=== PATIENT | male | born 1980 | race Caucasian/White ===

== ENCOUNTER 2017-04-16 14:24 | Emergency (ER) | payer OTHER ==
[~2017-04-16] VITALS: Ht 185.4 cm; Wt 107.0 kg
[~2017-04-16 14:24] MED LIST: ADDERALL20 MG PO; ALBUTEROL SULF8.5 GM IH; AMBIEN10 MG PO; CEPHALEXIN500 M2 PO; CLONAZEPAM0.5 MG PO; DEBROX15 ML BOTH EARS; DEPAKOTE ER (E500 M1 PO; DEPAKOTE ER500 MG PO; DEPAKOTE500 MG; DEPAKOTE500 MG PO; DOXYCYCLINE HY100 M1 PO; ERYTHROMYCIN O3.5 GM RIGHT EYE; FLEXERIL5 MG PO; FLOVENT 11120 INHALA IH; GEODON20 MG PO; IBUPROFEN800 MG PO; KLONOPIN0.5 M1 PO; LEVAQUIN500 MG PO; LEVOTHYROXINE100 MCG PO; LEVOTHYROXINE25 MCG PO; LICE TREATMENT118 ML TP; LIDODERM 5% P1 PATCH TD; LISINOPRIL10 MG PO; LISINOPRIL20 MG PO; MEDROL DOSEPAK4 MG PO; MOTRIN800 MG PO; NAPROXEN500 M2 PO; PERCOCET 5/31 TABLET PO; PERCOCET 7.51 TABLET PO; PREDNISONE20 MG PO; PROAIR HFA8.5 GM IH; RISPERDAL1 MG; RISPERDAL1 MG PO; RISPERIDONE1 MG PO; RITALIN20 MG PO; ROBITUSSIN AC,T10 ML PO; SERTRALINE HCL100 MG PO; SERTRALINE HCL50 MG PO; STRATTERA40 MG; STRATTERA40 MG PO; SYNTHROID100 MCG PO; SYNTHROID50 MCG; TESSALON PERLE100 MG PO; TRILEPTAL150 MG PO; TRILEPTAL300 MG PO; TYLENOL REGULA325 MG PO; VENTOLIN HFA18 GM IH; VIBRAMYCIN100 MG PO; VOLTAREN75 MG PO; ZIPRASIDONE HCL20 MG PO; ZITHROMAX Z-PA250 MG PO; ZITHROMAX250 MG PO; ZOLOFT100 M1 PO; ZOLOFT100 MG PO
[2017-04-16 15:53] LABS: HEMATOCRIT 45.3 % (38.0-50.0); MCH 29.5 PG (29.0-34.0); MCHC 34.4 G/DL (30.0-36.0); MCV 85.8 FL (86-99); MEAN PLAT.VOLUME 9.6 uM^3 (9.0-12.4); PLATELET COUNT 156 K/uL (156-360); RBC DIS.WIDTH-CV 12.8 % (11.8-14.6); RBC DIS.WIDTH-SD 39.5 % (39-53); RED BLOOD COUNT 5.28 M/uL (4.00-5.50); WHITE BLOOD COUNT 6.6 K/uL (4.1-10.2)
[2017-04-16 16:02] LABS: CHLORIDE 106 mEq/L (99-109); POTASSIUM 4.3 mEq/L (3.7-5.4); SODIUM 139 mEq/L (136-147)
[2017-04-16 16:04] LABS: GLUCOSE 86 mg/dL (70-99)
[2017-04-16 16:05] LABS: ANION GAP 7 MEQ/L (2-14)
[2017-04-16 16:06] LABS: TOTAL BILIRUBIN 0.5 mg/dL (0.0-1.0)
[2017-04-16 16:08] LABS: ALKALINE PHOSPHATASE 56 IU/L (3-129); GFR ESTIMATE (CALCULATED) > 59 mL/min/
[2017-04-16 16:09] LABS: UREA NITROGEN (BUN) 19 mg/dL (9-23)
[2017-04-16 16:11] LABS: LIPASE 24 U/L (1.0-51.0)
[2017-04-16] MEDS ORDERED: OMEPRAZOLE40 M1 PO (17:08)
[2017-04-16] MEDS ORDERED: TOBREX3.5 GM BOTH EYES (17:08)
[2017-04-16 17:30] VITALS: BP 146/88
== END 2017-04-16 17:31 | disposition home or self-care (01) ==
LOC: EME 14:24
PROVIDERS: Physician Assistant
DX: H10.9 Unspecified conjunctivitis (principal); R10.13 Epigastric pain; F17.200 Nicotine dependence, unspecified, uncomplicated; Z88.0 Allergy status to penicillin; Z88.8 Allergy status to other drugs, medicaments and biological substances
CPT/HCPCS: 74022; 80053; 83690; 85027; 99281; 99284

== ENCOUNTER 2017-07-07 04:27 | Emergency (ER) | payer OTHER ==
[~2017-07-07] VITALS: Ht 188 cm; Wt 118.4 kg
[~2017-07-07 04:27] MED LIST changes: +OMEPRAZOLE40 M1 PO; +TOBREX3.5 GM BOTH EYES
[2017-07-07 05:31] LABS: D-DIMER ELISA < 150.00 ng/mLDDU (<230)
[2017-07-07 05:32] LABS: ALBUMIN 4.2 g/dL (3.2-4.8); CHLORIDE 106 mEq/L (99-109); SODIUM 138 mEq/L (136-147)
[2017-07-07 05:34] LABS: GLUCOSE 118 mg/dL (70-99); TOTAL PROTEIN 6.9 g/dL (6.4-8.3)
[2017-07-07 05:36] LABS: TOTAL BILIRUBIN 0.5 mg/dL (0.0-1.0)
[2017-07-07 05:38] LABS: ALKALINE PHOSPHATASE 71 IU/L (3-129); CREATININE 0.8 mg/dL (0.6-1.3); GFR ESTIMATE (CALCULATED) > 59 mL/min/ (58.99-99999)
[2017-07-07 05:39] LABS: UREA NITROGEN (BUN) 15 mg/dL (9-23)
[2017-07-07 05:40] LABS: AST (GOT) 25 IU/L (2-34)
[2017-07-07 05:41] LABS: ALT (GPT) 31 IU/L (3-49); LIPASE 50 U/L (1.0-51.0)
[2017-07-07 05:43] LABS: HEMATOCRIT 41.5 % (38.0-50.0); HEMOGLOBIN 14.7 G/DL (12.5-16.6); MCH 30.4 PG (29.0-34.0); MCHC 35.4 G/DL (30.0-36.0); MCV 85.7 FL (86-99); PLATELET COUNT 198 K/uL (156-360); RBC DIS.WIDTH-CV 12.6 % (11.8-14.6); RBC DIS.WIDTH-SD 38.5 % (39-53); RED BLOOD COUNT 4.84 M/uL (4.00-5.50); WHITE BLOOD COUNT 8.1 K/uL (4.1-10.2)
[2017-07-07] MEDS ORDERED: ZITHROMAX Z-PA250 MG PO (05:57)
[2017-07-07] MEDS ORDERED: HYCODAN SYRUP480 ML PO (05:57)
[2017-07-07 06:18] VITALS: BP 132/98
== END 2017-07-07 06:23 | disposition home or self-care (01) ==
LOC: EME 04:27
PROVIDERS: Emergency Medicine
DX: J20.9 Acute bronchitis, unspecified (principal); K29.00 Acute gastritis without bleeding; K29.50 Unspecified chronic gastritis without bleeding; K76.0 Fatty (change of) liver, not elsewhere classified; R16.0 Hepatomegaly, not elsewhere classified; F90.9 Attention-deficit hyperactivity disorder, unspecified type; F43.10 Post-traumatic stress disorder, unspecified; F32.9 Major depressive disorder, single episode, unspecified; F17.200 Nicotine dependence, unspecified, uncomplicated; Z79.891 Long term (current) use of opiate analgesic; Z88.6 Allergy status to analgesic agent; Z88.2 Allergy status to sulfonamides; Z88.0 Allergy status to penicillin
CPT/HCPCS: 71046; 76705; 80053; 83690; 85027; 85379; 87502; 94640; 99281; 99284

== ENCOUNTER 2017-07-27 17:43 | Emergency (ER) | payer OTHER ==
[~2017-07-27] VITALS: Ht 188 cm; Wt 118.5 kg
[~2017-07-27 17:43] MED LIST changes: +HYCODAN SYRUP480 ML PO
[2017-07-27 18:54] LABS: HEMATOCRIT 44.7 % (38.0-50.0); HEMOGLOBIN 15.7 G/DL (12.5-16.6); MCH 29.7 PG (29.0-34.0); MCHC 35.1 G/DL (30.0-36.0); MCV 84.5 FL (86-99); PLATELET COUNT 199 K/uL (156-360); RBC DIS.WIDTH-CV 12.4 % (11.8-14.6); RBC DIS.WIDTH-SD 38.1 % (39-53); RED BLOOD COUNT 5.29 M/uL (4.00-5.50); WHITE BLOOD COUNT 7.8 K/uL (4.1-10.2)
[2017-07-27 19:13] LABS: ALBUMIN 4.2 G/DL (3.2-4.8); CHLORIDE 108 MEQ/L (99-109); POTASSIUM 3.8 MEQ/L (3.7-5.4); SODIUM 140 MEQ/L (136-147); TOTAL BILIRUBIN 0.3 MG/DL (0.0-1.0)
[2017-07-27 19:18] LABS: ALKALINE PHOSPHATASE 60 IU/L (3-129); ALT (GPT) 20 IU/L (3-49); AST (GOT) 20 IU/L (2-34); CREATININE 0.8 MG/DL (0.6-1.3); GFR ESTIMATE (CALCULATED) > 59 mL/min/ (58.99-99999); GLUCOSE 107 mg/dL (70-99); TOTAL PROTEIN 6.9 G/DL (6.4-8.3); UREA NITROGEN (BUN) 16 mg/dL (9-23)
[2017-07-27 20:40] LABS: APPEARANCE CLEAR ((CLEAR)); BILIRUBIN NEGATIVE; BLOOD NEGATIVE; COLOR YELLOW ((YELLOW)); GLUCOSE (STRIP) NEGATIVE; KETONES NEGATIVE; LEUKOCYTES SMALL; NITRITE NEGATIVE; PROTEIN (STRIP) NEGATIVE; SPECIFIC GRAVITY 1.021 (1.000-1.030); UROBILINOGEN 0.2 MG/DL (0.2-1.0)
[2017-07-27 21:19] LABS: BACTERIA NONE SEEN /HPF; EPITHELIAL CELLS RARE /HPF; MUCUS TRACE /LPF; RED BLOOD CELLS 0-5 /HPF (0-5); UCUL ADDED? YES
[2017-07-28] MEDS ORDERED: ZOFRAN ODT8 MG PO (02:12)
[2017-07-28] MEDS ORDERED: BENTYL20 MG PO (02:12)
[2017-07-28] MEDS ORDERED: ZANTAC300 MG PO (02:13)
[2017-07-28 02:41] VITALS: BP 133/79
== END 2017-07-28 02:42 | disposition home or self-care (01) ==
LOC: EME 17:43
DX: R10.11 Right upper quadrant pain (principal); R11.2 Nausea with vomiting, unspecified; K76.0 Fatty (change of) liver, not elsewhere classified; F31.9 Bipolar disorder, unspecified; F32.9 Major depressive disorder, single episode, unspecified; F41.9 Anxiety disorder, unspecified; F90.9 Attention-deficit hyperactivity disorder, unspecified type; F17.200 Nicotine dependence, unspecified, uncomplicated; Z90.49 Acquired absence of other specified parts of digestive tract; Z88.2 Allergy status to sulfonamides; Z88.0 Allergy status to penicillin; Z88.6 Allergy status to analgesic agent; Z88.8 Allergy status to other drugs, medicaments and biological substances
CPT/HCPCS: 74176; 76705; 80053; 81003; 85027; 87086; 99281; 99284

== ENCOUNTER → 2017-09-10 | Outpatient (CLI) | payer OTHER ==
[~2017-09-10] MED LIST changes: +BENTYL20 MG PO; +ZANTAC300 MG PO; +ZOFRAN ODT8 MG PO
== END | disposition home or self-care (01) ==
LOC: NUC 09:07
DX: R10.11 Right upper quadrant pain (principal)
CPT/HCPCS: 78227; A9537; J2805

== ENCOUNTER 2017-11-04 19:08 | Inpatient (IN) | payer OTHER ==
[~2017-11-04] VITALS: Ht 188 cm; Wt 117.8 kg
[2017-11-04 21:35] LABS: AMPHETAMINE NEGATIVE (500 ng/mL); BARBITURATES NEGATIVE (200 ng/mL); BENZODIAZEPINES NEGATIVE (150 ng/mL); BUPRENORPHINE NEGATIVE (10 ng/mL); COCAINE NEGATIVE (150 ng/mL); METHADONE NEGATIVE (200 ng/mL); METHAMPHETAMINE NEGATIVE (500 ng/mL); OPIATES (MORPHINE) NEGATIVE (100 ng/mL); OXYCODONE NEGATIVE (100 ng/mL); PHENCYCLIDINE NEGATIVE (25 ng/mL); PROPOXYPHENE NEGATIVE (300 ng/mL); THC CANNABINOIDS NEGATIVE (50 ng/mL); TRICYCLIC ANTIDEPRESSANTS NEGATIVE (300 ng/mL)
[2017-11-04 21:52] LABS: HEMATOCRIT 43.8 % (38.0-50.0); HEMOGLOBIN 15.4 G/DL (12.5-16.6); MCH 29.6 PG (29.0-34.0); MCHC 35.2 G/DL (30.0-36.0); MCV 84.2 FL (86-99); PLATELET COUNT 208 K/uL (156-360); RBC DIS.WIDTH-CV 12.7 % (11.8-14.6); RBC DIS.WIDTH-SD 38.7 % (39-53); WHITE BLOOD COUNT 10.8 K/uL (4.1-10.2)
[2017-11-04 22:14] LABS: CHLORIDE 108 mEq/L (99-109); POTASSIUM 3.8 mEq/L (3.7-5.4); SODIUM 142 mEq/L (136-147)
[2017-11-04 22:16] LABS: GLUCOSE 93 mg/dL (70-99)
[2017-11-04 22:19] LABS: SERUM ETHYL ALCOHOL < 10 mg/dL
[2017-11-04 22:20] LABS: CREATININE 0.8 mg/dL (0.6-1.3); GFR ESTIMATE (CALCULATED) > 59 mL/min/ (58.99-99999)
[2017-11-04 22:22] LABS: UREA NITROGEN (BUN) 15 mg/dL (9-23)
[2017-11-04 22:23] LABS: ACETAMINOPHEN (TYLENOL) < 10 mcg/mL (10-30); SALICYLATE < 5.0 MG/DL (15-30)
[2017-11-05] MEDS ORDERED: AMLOD-VALSA-HC1 EAC1 PO (00:22)
[2017-11-05] MEDS ORDERED: MINIPRESS1 MG PO ×2 (00:25→11:11)
[2017-11-05] MEDS ORDERED: ATARAX,VISTARIL50 MG PO (00:25)
[2017-11-05] MEDS ORDERED: DESYREL100 MG PO (00:25)
[2017-11-05 00:38] VITALS: BP 147/86
[2017-11-05 08:05] VITALS: BP 131/92
[2017-11-05] MEDS ORDERED: NORVASC5 MG PO (11:12)
[2017-11-05] MEDS ORDERED: DEPAKOTE250 MG PO (11:13)
[2017-11-05] MEDS ORDERED: TRAZODONE HCL100 MG PO (11:15)
[2017-11-05 16:35] VITALS: BP 139/79
[2017-11-06 08:04] VITALS: BP 135/79
[2017-11-06 14:41] VITALS: BP 134/76
[2017-11-07 07:33] VITALS: BP 109/67
[2017-11-07 15:15] VITALS: BP 149/73
[2017-11-08 07:39] VITALS: BP 130/78
[2017-11-08 15:15] VITALS: BP 139/79
[2017-11-09 08:10] VITALS: BP 129/75
== END 2017-11-09 12:03 | disposition home or self-care (01) | DRG 882 ==
LOC: EME 19:08 → 1WEST 23:59 → EDOF 23:59 → ENRESERV 11-05 00:04 → 1WEST 11-05 00:31
PROVIDERS: Emergency Medicine
DX: F43.23 Adjustment disorder with mixed anxiety and depressed mood (principal); F60.9 Personality disorder, unspecified; F63.81 Intermittent explosive disorder; F31.9 Bipolar disorder, unspecified; F41.9 Anxiety disorder, unspecified; F10.20 Alcohol dependence, uncomplicated; F43.10 Post-traumatic stress disorder, unspecified; S60.812A Abrasion of left wrist, initial encounter; X78.9XXA Intentional self-harm by unspecified sharp object, initial encounter; I10 Essential (primary) hypertension; E03.9 Hypothyroidism, unspecified; F17.200 Nicotine dependence, unspecified, uncomplicated; Z88.0 Allergy status to penicillin; Z88.2 Allergy status to sulfonamides
CPT/HCPCS: 80048; 85027; 90837; 97150 GO; 97165 GO; 99202; 99281; 99285; G0480

== ENCOUNTER 2017-12-28 12:25 | Emergency (ER) | payer OTHER ==
[~2017-12-28] VITALS: Ht 188 cm; Wt 115.0 kg
[~2017-12-28 12:25] MED LIST changes: +AMLOD-VALSA-HC1 EAC1 PO; +ATARAX,VISTARIL50 MG PO; +DEPAKOTE250 MG PO; +DESYREL100 MG PO; +MINIPRESS1 MG PO; +NORVASC5 MG PO; +TRAZODONE HCL100 MG PO
[2017-12-28] MEDS ORDERED: PREDNISONE10 MG PO (13:24)
[2017-12-28] MEDS ORDERED: ULTRAM50 MG PO (13:24)
[2017-12-28 13:37] VITALS: BP 138/87
== END 2017-12-28 13:45 | disposition home or self-care (01) ==
LOC: EME 12:25
DX: M54.5 Low back pain (principal); R10.9 Unspecified abdominal pain; J45.909 Unspecified asthma, uncomplicated; F17.200 Nicotine dependence, unspecified, uncomplicated
CPT/HCPCS: 99281; 99283